=== PATIENT | female | born 1960 | race Caucasian/White ===

== ENCOUNTER → 2016-10-13 | Outpatient (CLI) | payer BC ==
--- NOTE | 2016-10-14 16:18 | XR ---
EXAMINATION TYPE: XR chest 2V DATE OF EXAM: 10/13/2016 1:58 PM COMPARISON: 06/11/2015 INDICATION: Cough TECHNIQUE: Frontal and lateral views of the chest are obtained. FINDINGS: The heart size is normal. The pulmonary vasculature is normal. The lungs are clear. IMPRESSION: 1. No acute pulmonary process.
== END | disposition home or self-care (01) ==
LOC: RADXRYALE 11:05
PROVIDERS: ATTEND Internal Medicine
DX: R05 Cough (principal)
CPT/HCPCS: 71020

== ENCOUNTER → 2016-10-27 | Outpatient (CLI) | payer BC ==
--- NOTE | 2016-10-27 16:04 | US ---
EXAMINATION TYPE: US thyroid st tissue head/neck DATE OF EXAM: 10/27/2016 3:27 PM COMPARISON: NONE CLINICAL HISTORY: R22.1 swelling,lump. Pt feels lump at left supraclavicular neck area. TECHNOLOGIST IMPRESSION: No mass or fluid collection noted at area of palpable lump. Bilateral neck scanned, no abnormal lymphadenopathy noted. Scanning of area of concern shows no worrisome solid or cystic mass or abnormal fluid collection. IMPRESSION: As above.
--- NOTE | 2016-10-28 08:23 | ECHOF ---
Referral Reason:R60.1 edema MEASUREMENTS -------- HEIGHT: 167.6 cm WEIGHT: 83.5 kg BP: 183/104 RVIDd: 2.8 cm (< 3.3) IVSd: 1.1 cm (0.6 - 1.1) LVIDd: 4.6 cm (3.9 - 5.3) LVPWd: 1.1 cm (0.6 - 1.1) IVSs: 1.4 cm LVIDs: 3.1 cm LVPWs: 1.7 cm LA Diam: 3.4 cm (2.7 - 3.8) LAESV Index (A-L): 16.84 ml/m Ao Diam: 3.4 cm (2.0 - 3.7) AV Cusp: 1.9 cm (1.5 - 2.6) MV EXCURSION: 11.800 mm (> 18.000) MV EF SLOPE: 65 mm/s (70 - 150) EPSS: 0.7 cm MV E Manolo: 0.84 m/s MV DecT: 280 ms MV A Manolo: 1.06 m/s MV E/A Ratio: 0.80 FINDINGS -------- Sinus rhythm. This was a technically adequate study. The left ventricular size is normal. There is borderline concentric left ventricular hypertrophy. Overall left ventricular systolic function is normal with, an EF between 60 - 65 %. The right ventricle is normal in size. The left atrium is normal in size. Normal LA size by volume 22+/-6 ml/m2. The right atrium is normal in size. The aortic valve is trileaflet and appears structurally normal. Mild mitral annular calcification present. The tricuspid valve appears structurally normal. No regurgitation noted Trace/mild (physiologic) pulmonic regurgitation. The aortic root size is normal. The inferior vena cava is mildly dilated. There is no pericardial effusion. CONCLUSIONS -------- 1. Sinus rhythm. 2. Mild mitral annular calcification present. 3. The tricuspid valve appears structurally normal. 4. Trace/mild (physiologic) pulmonic regurgitation. 5. The aortic root size is normal. 6. The inferior vena cava is mildly dilated. 7. There is no pericardial effusion. 8. This was a technically adequate study. 9. The left ventricular size is normal. 10. There is borderline concentric left ventricular hypertrophy. 11. Overall left ventricular systolic function is normal with, an EF between 60 - 65 %. 12. The right ventricle is normal in size. 13. Normal LA size by volume 22+/-6 ml/m2. 14. The right atrium is normal in size. 15. The aortic valve is trileaflet and appears structurally normal. HOOD MAKER: Idania Rudd RDCS
== END | disposition home or self-care (01) ==
LOC: RADECHMAIN 14:47
PROVIDERS: ATTEND Internal Medicine
DX: I37.1 Nonrheumatic pulmonary valve insufficiency (principal); I05.9 Rheumatic mitral valve disease, unspecified; I51.7 Cardiomegaly; I87.1 Compression of vein; R60.1 Generalized edema; R22.1 Localized swelling, mass and lump, neck
CPT/HCPCS: 76536; 93306

== ENCOUNTER → 2016-11-10 | Outpatient (CLI) | payer BC ==
--- NOTE | 2016-11-15 10:15 | MM ---
Reason for exam: screening (asymptomatic). Last mammogram was performed 1 year and 4 months ago. History: Patient is postmenopausal. Benign excisional biopsy of the right breast, July 05, 2003. Took estrogen for 2 years beginning at age 43. Physical Findings: A clinical breast exam by your physician is recommended on an annual basis and results should be correlated with mammographic findings. MG Screening Mammo w CAD Bilateral CC and MLO view(s) were taken. Prior study comparison: July 10, 2015, bilateral MG screening mammo w CAD. September 20, 2013, [facility] DIGITAL RIGHT MAMMOGRAM w/CAD. The breast tissue is heterogeneously dense. This may lower the sensitivity of mammography. There is no discrete abnormality. No significant changes when compared with prior studies. ASSESSMENT: Negative, BI-RAD 1 RECOMMENDATION: Routine screening mammogram of both breasts in 1 year.
== END | disposition home or self-care (01) ==
LOC: RADMAMWWP 15:19
PROVIDERS: ATTEND Internal Medicine
DX: Z12.31 Encounter for screening mammogram for malignant neoplasm of breast (principal)

== ENCOUNTER → 2018-10-20 | Outpatient (CLI) | payer OTHER ==
--- NOTE | 2018-10-23 07:29 | MM ---
Reason for exam: screening (asymptomatic). Last mammogram was performed 1 year and 11 months ago. History: Patient is postmenopausal. Benign excisional biopsy of the right breast, July 05, 2003. Took estrogen for 2 years beginning at age 43. Physical Findings: A clinical breast exam by your physician is recommended on an annual basis and results should be correlated with mammographic findings. MG Screening Mammo w CAD Bilateral CC and MLO view(s) were taken. Prior study comparison: November 10, 2016, bilateral MG screening mammo w CAD. July 10, 2015, bilateral MG screening mammo w CAD. The breast tissue is heterogeneously dense. This may lower the sensitivity of mammography. There are benign appearing round calcifications bilaterally. There is no discrete abnormality. ASSESSMENT: Benign, BI-RAD 2 RECOMMENDATION: Routine screening mammogram of both breasts in 1 year.
== END | disposition home or self-care (01) ==
LOC: RADMAMWWP 12:15
PROVIDERS: ATTEND Internal Medicine
DX: Z12.31 Encounter for screening mammogram for malignant neoplasm of breast (principal)
CPT/HCPCS: 77067

== ENCOUNTER 2018-12-05 12:18 | Emergency (ER) | payer OTHER ==
[2018-12-05 12:34] VITALS: TEMP 97.2
[2018-12-05] MEDS ORDERED: SODIUM CHLORIDE 0.9% 500 ML 500 ML IV STA (13:06)
[2018-12-05] MEDS ORDERED: DIPHENOX-ATROP 2.5-0.025 MG 1 EACH TAB PO STA (13:06)
[2018-12-05] MEDS ORDERED: ONDANSETRON 4 MG/2 ML VIAL IVP STA ×2 (13:06→14:52)
[2018-12-05] MEDS ORDERED: SODIUM CHLORIDE 0.9% 1,000 ML IV STA (13:06)
[2018-12-05] MEDS ORDERED: hydrALAZINE HCL 20 MG/ML 1 ML VIAL IVP STA (13:15)
--- NOTE | 2018-12-05 13:18 | ED ---
General Adult HPI - General Chief complaint: Nausea/Vomiting/Diarrhea Stated complaint: Stomach pain Time Seen by Provider: 12/05/18 12:30 Source: patient Mode of arrival: ambulatory Limitations: no limitations - History of Present Illness Initial comments: This a 58-year-old female presents emergency Department complaining of nausea vomiting and diarrhea. Patient states the nausea vomiting started 2 days ago and the diarrhea started yesterday. Patient states she has abdominal discomfort but no specific area of pain. Patient denies any fever chills per patient denies any recent antibiotics use. Patient denies any blood in the vomitus or diarrhea. Patient denies any chest pain difficult breathing shortness of breath. Patient states she is a daily drinker but she denies being an alcoholic. Patient denies any lightheadedness dizziness or near syncopal episode. - Related Data Home Medications Medication Instructions Recorded Confirmed ALPRAZolam [Xanax] 1.5 mg PO DAILY PRN 12/05/18 12/05/18 Lisinopril [Zestril] 40 mg PO DAILY 12/05/18 12/05/18 Naproxen 500 mg PO Q12H 12/05/18 12/05/18 Omeprazole 20 mg PO DAILY 12/05/18 12/05/18 Previous Rx's Medication Instructions Recorded Diphenox-Atrop 2.5-0.025 mg 2 tab PO QID PRN #6 tab 12/05/18 [Lomotil] Ondansetron Odt [Zofran Odt] 4 mg PO Q8HR PRN #5 tab 12/05/18 Allergies Allergy/AdvReac Type Severity Reaction Status Date / Time No Known Allergies Allergy Verified 12/05/18 13:35 Review of Systems ROS Statement: Those systems with pertinent positive or pertinent negative responses have been documented in the HPI. ROS Other: All systems not noted in ROS Statement are negative. Past Medical History Past Medical History: Hypertension History of Any Multi-Drug Resistant Organisms: None Reported Past Surgical History: No Surgical Hx Reported Past Psychological History: No Psychological Hx Reported Smoking Status: Never smoker Past Alcohol Use History: None Reported General Exam - General Exam Comments Initial Comments: GENERAL: Patient is well-developed and well-nourished. Patient is nontoxic and well- hydrated and is in mild distress. ENT: Neck is soft and supple. No significant lymphadenopathy is noted. Oropharynx is clear. Moist mucous membranes. Neck has full range of motion without eliciting any pain. EYES: The sclera were anicteric and conjunctiva were pink and moist. Extraocular movements were intact and pupils were equal round and reactive to light. Eyelids were unremarkable. PULMONARY: Unlabored respirations. Good breath sounds bilaterally. No audible rales rhonchi or wheezing was noted. CARDIOVASCULAR: There is a regular rate and rhythm without any murmurs gallops or rubs. ABDOMEN: Soft and nontender with normal bowel sounds. No palpable organomegaly was noted. There is no palpable pulsatile mass. SKIN: Skin is clear with no lesions or rashes and otherwise unremarkable. NEUROLOGIC: Patient is alert and oriented x3. Cranial nerves II through XII are grossly intact. Motor and sensory are also intact. Normal speech, volume and content. Symmetrical smile. MUSCULOSKELETAL: Normal extremities with adequate strength and full range of motion. LYMPHATICS: No significant lymphadenopathy is noted PSYCHIATRIC: Normal psychiatric evaluation. Limitations: no limitations Course Vital Signs 12/05/18 12:30 Temperature 97.2 F L Pulse Rate 75 Respiratory 16 Rate Blood Pressure 206/108 O2 Sat by Pulse 96 Oximetry Medical Decision Making - Medical Decision Making Patient will more episode of emesis in the emergency department but after that was feeling considerably better. I went back into the room to reevaluate the patient patient's abdomen continued to be soft. And I discussed the fact that the patient was intoxicated and she did agree that she is probably an alcoholic. - Lab Data Result diagrams: 12/05/18 13:20 12/05/18 13:20 Lab Results 12/05/18 12/05/18 Range/Units 13:20 13:20 WBC 5.9 (3.8-10.6) k/uL RBC 5.13 (3.80-5.40) m/uL Hgb 14.9 (11.4-16.0) gm/dL Hct 44.8 (34.0-46.0) % MCV 87.5 (80.0-100.0) fL MCH 29.1 (25.0-35.0) pg MCHC 33.2 (31.0-37.0) g/dL RDW 13.7 (11.5-15.5) % Plt Count 259 (150-450) k/uL Neutrophils % 65 % Lymphocytes % 27 % Monocytes % 4 % Eosinophils % 3 % Basophils % 1 % Neutrophils # 3.8 (1.3-7.7) k/uL Lymphocytes # 1.6 (1.0-4.8) k/uL Monocytes # 0.2 (0-1.0) k/uL Eosinophils # 0.2 (0-0.7) k/uL Basophils # 0.0 (0-0.2) k/uL Sodium 145 (137-145) mmol/L Potassium 4.2 (3.5-5.1) mmol/L Chloride 107 (98-107) mmol/L Carbon Dioxide 28 (22-30) mmol/L Anion Gap 10 mmol/L BUN 20 H (7-17) mg/dL Creatinine 0.67 (0.52-1.04) mg/dL Est GFR (CKD-EPI)AfAm >90 (>60 ml/min/1.73 sqM) Est GFR (CKD-EPI)NonAf >90 (>60 ml/min/1.73 sqM) Glucose 105 H (74-99) mg/dL Calcium 10.7 H (8.4-10.2) mg/dL Total Bilirubin 0.7 (0.2-1.3) mg/dL AST 23 (14-36) U/L ALT 30 (9-52) U/L Alkaline Phosphatase 89 (38-126) U/L Total Protein 7.8 (6.3-8.2) g/dL Albumin 4.8 (3.5-5.0) g/dL Amylase 72 (30-110) U/L Lipase 152 (23-300) U/L Serum Alcohol 179 mg/dL Disposition Clinical Impression: Alcohol intoxication, Gastroenteritis Disposition: HOME SELF-CARE Condition: Good Instructions (If sedation given, give patient instructions): Gastroenteritis (ED), Abuse of Alcohol (ED) Prescriptions: Diphenox-Atrop 2.5-0.025 mg [Lomotil] 2 tab PO QID PRN #6 tab PRN Reason: Diarrhea Ondansetron Odt [Zofran Odt] 4 mg PO Q8HR PRN #5 tab PRN Reason: Nausea Is patient prescribed a controlled substance at d/c from ED?: No Referrals: Tammie Alonso MD [Primary Care Provider] - 1-2 days Time of Disposition: 15:37
[2018-12-05 13:33] LABS: Basophils % (A) 1 %; Eosinophils # (A) 0.2 k/uL (0-0.7); Eosinophils % (A) 3 %; HCT 44.8 % (34.0-46.0); HGB 14.9 gm/dL (11.4-16.0); Lymphocytes # (A) 1.6 k/uL (1.0-4.8); Lymphocytes % (A) 27 %; MCH 29.1 pg (25.0-35.0); MCHC 33.2 g/dL (31.0-37.0); MCV 87.5 fL (80.0-100.0); Mean Platelet Volume 7.4; Monocytes # (A) 0.2 k/uL (0-1.0); Monocytes % (A) 4 %; Neutrophils # (A) 3.8 k/uL (1.3-7.7); Neutrophils % (A) 65 %; Platelet Count 259 k/uL (150-450); RBC 5.13 m/uL (3.80-5.40); RDW 13.7 % (11.5-15.5); WBC 5.9 k/uL (3.8-10.6)
[2018-12-05 13:46] LABS: ALT 30 U/L (9-52); AST 23 U/L (14-36); Albumin 4.8 g/dL (3.5-5.0); Alkaline Phosphatase 89 U/L (38-126); Amylase 72 U/L (30-110); Anion Gap 10 mmol/L; Blood Urea Nitrogen 20 mg/dL (7-17); Calcium 10.7 mg/dL (8.4-10.2); Carbon Dioxide 28 mmol/L (22-30); Chloride 107 mmol/L (98-107); Glucose 105 mg/dL (74-99); Lipase 152 U/L (23-300); Potassium 4.2 mmol/L (3.5-5.1); Sodium 145 mmol/L (137-145); Total Bilirubin 0.7 mg/dL (0.2-1.3); Total Protein 7.8 g/dL (6.3-8.2)
[2018-12-05 13:49] LABS: Alcohol 179 mg/dL
--- NOTE | 2018-12-05 14:04 | XR ---
EXAMINATION TYPE: XR KUB DATE OF EXAM: 12/05/2018 1:59 PM CLINICAL HISTORY: Nausea, vomiting, and abdominal pain TECHNIQUE: Single supine KUB image of the abdomen is obtained. COMPARISON: None. FINDINGS: Scattered loops of nondilated small and large bowel are seen throughout the abdomen. Few ai r-fluid levels are seen with no differential air-fluid levels. Lung bases are well aerated. Osseous s tructures are grossly intact. Bilateral femoral arthroplasties are seen. No abnormal calcifications i n the abdomen. Liver appears mildly enlarged extending past the iliac crest. IMPRESSION: Few air-fluid levels within nondilated bowel suggests mild ileus. No evidence of obstruction.
[2018-12-05 15:46] VITALS: RESP 18
[2018-12-05 15:47] VITALS: BP 161/101; PULSE 86
== END 2018-12-05 15:55 | disposition home or self-care (01) ==
LOC: EC 12:18
DX: K52.9 Noninfective gastroenteritis and colitis, unspecified (principal); F10.129 Alcohol abuse with intoxication, unspecified; I10 Essential (primary) hypertension; Z79.1 Long term (current) use of non-steroidal anti-inflammatories (NSAID); Z79.899 Other long term (current) drug therapy
CPT/HCPCS: 36415; 80053; 82150; 83690; 85025; 80320; 74018; 99284; 96374; 96375; 96376; 96361 ×2; J0360; J2405

== ENCOUNTER → 2020-03-11 | Outpatient (CLI) | payer OTHER ==
[~2020-03-11] MED LIST: REGADENOSON 0.4 MG/5 ML SYRINGE IV ONE
--- NOTE | 2020-03-12 12:18 | ECHOF ---
Referral Reason:R07.9 chest pain, I16.0 hypertension urgency MEASUREMENTS -------- HEIGHT: 167.6 cm WEIGHT: 86.2 kg BP: 185/95 RVIDd: 3.1 cm (< 3.3) IVSd: 1.0 cm (0.6 - 1.1) LVIDd: 5.2 cm (3.9 - 5.3) LVPWd: 1.2 cm (0.6 - 1.1) IVSs: 1.6 cm LVIDs: 3.1 cm LVPWs: 1.7 cm LA Diam: 3.5 cm (2.7 - 3.8) LAESV Index (A-L): 29.39 ml/m Ao Diam: 3.2 cm (2.0 - 3.7) AV Cusp: 2.1 cm (1.5 - 2.6) MV EXCURSION: 19.436 mm (> 18.000) MV EF SLOPE: 89 mm/s (70 - 150) EPSS: 0.9 cm MV E Manolo: 1.12 m/s MV DecT: 211 ms MV A Manolo: 0.84 m/s MV E/A Ratio: 1.34 RAP: 5.00 mmHg RVSP: 31.76 mmHg FINDINGS -------- Sinus rhythm. This was a technically adequate study. The left ventricular size is normal. There is borderline concentric left ventricular hypertrophy. Overall left ventricular systolic function is normal with, an EF between 60 - 65 %. The right ventricle is normal in size. LA is midly dilated 29-33ml/m2. The right atrium is normal in size. Interatrial and interventricular septum intact. The aortic valve is trileaflet and appears structurally normal. There is trace to mild mitral regurgitation. Mild tricuspid regurgitation present. Right ventricular systolic pressure is normal at < 35 mmHg. Trace/mild (physiologic) pulmonic regurgitation. The aortic root size is normal. Normal inferior vena cava with normal inspiratory collapse consistent with estimated right atrial pre ssure of 5 mmHg. The inferior vena cava is mildly dilated. There is no pericardial effusion. CONCLUSIONS -------- 1. Sinus rhythm. 2. This was a technically adequate study. 3. The left ventricular size is normal. 4. There is borderline concentric left ventricular hypertrophy. 5. Overall left ventricular systolic function is normal with, an EF between 60 - 65 %. 6. The right ventricle is normal in size. 7. LA is midly dilated 29-33ml/m2. 8. The right atrium is normal in size. 9. Interatrial and interventricular septum intact. 10. The aortic valve is trileaflet and appears structurally normal. 11. There is trace to mild mitral regurgitation. 12. Mild tricuspid regurgitation present. 13. Right ventricular systolic pressure is normal at < 35 mmHg. 14. Trace/mild (physiologic) pulmonic regurgitation. 15. The aortic root size is normal. 16. Normal inferior vena cava with normal inspiratory collapse consistent with estimated right atrial pressure of 5 mmHg. 17. The inferior vena cava is mildly dilated. 18. There is no pericardial effusion. EMERY GRINDER: Idania Rudd RDCS
--- NOTE | 2020-03-14 13:17 | NM ---
EXAMINATION TYPE: NM stress lexiscan cardiolite DATE OF EXAM: 03/14/2020 COMPARISON: NONE HISTORY: Precordial chest pain and abnormal EKG TECHNIQUE: After the intravenous administration of 9.7 mCi Tc 99m Sestamibi - Cardiolite resting SPE CT images acquired 65 minutes post injection. The patient received 0.4mg Lexiscan, 25.9 mCi Tc 99m Sestamibi - Stress images obtained [address] injection FINDINGS: Review of stress and rest SPECT images demonstrates no distinct perfusion abnormality. Gated analysi s shows normal wall motion with an estimated left ventricular ejection fraction of %. IMPRESSION: No scintigraphic evidence for reversible ischemia.
--- NOTE | 2020-03-14 14:32 | EST ---
EXERCISE STRESS DATE OF SERVICE: 03/14/2020 AGE: 59 SEX: Fe HT: 5'6" WT: 190 lbs PROTOCOL: Lexiscan Cardiolite STAGE: DURATION OF EXERCISE: HEART RATE REST: 76 BLOOD PRESSURE REST: 144/94 MAXIMUM HEART RATE ACHIEVED: 88 MAXIMUM BLOOD PRESSURE: 183/105. 85% MPHR: 100% MPHR: METS: INDICATIONS: Chest pain. STRESS DATA: Heart rate 76, pressure is 183/105 mmHg. Baseline EKG showed sinus mechanism. The patient was given 0.4 mg of Lexiscan over 15 seconds per protocol. Max heart rate was 88 beats per minute and maximum pressure was 183/105 mmHg. Clinically the patient did not have any symptoms and the EKG did not show any significant ST or T-wave abnormalities concerning for ischemia. CONCLUSION: 1. Nondiagnostic electrocardiogram stress testing in response to Lexiscan. 2. Please follow up on the Cardiolite portion on separate report from Radiology Department. MMODL / IJN: [id number] /
== END | disposition home or self-care (01) ==
LOC: RADNMMAIN 08:22
PROVIDERS: ATTEND Family Medicine
DX: I07.1 Rheumatic tricuspid insufficiency (principal); I10 Essential (primary) hypertension
CPT/HCPCS: 93306; J2785; 78452; 93017

== ENCOUNTER 2020-03-31 18:04 | Observation (INO) | payer OTHER ==
--- NOTE | 2020-03-31 18:53 | ED ---
General Adult HPI - General Chief complaint: GI Bleed Stated complaint: blood in stool Time Seen by Provider: 03/31/20 18:44 Source: patient Mode of arrival: ambulatory Limitations: no limitations - History of Present Illness Initial comments: Dictation was produced using [employer] dictation software. please excuse any grammatical, word or spelling errors. This patient was cared for during a federal and state declared state of emergency secondary to Covid 19 Chief Complaint: 59-year-old female presents with bright red blood per rectum. History of Present Illness: 59-year-old female. She presents today with bright red blood per rectum. Yesterday at approximately 3 PM patient had large volume of bright red blood that was in the toilet. She has not had a bowel movement today however she did pass gas and noted that there was some blood that came out from her bottom. She does have suprapubic pain. Patient denies any rectal pa in. She does not have any history of GI bleed. Patient does not take any blood thinners. Denies any orthostasis. The ROS documented in this emergency department record has been reviewed and confirmed by me. Those systems with pertinent positive or negative responses have been documented in the HPI. All other systems are other negative and/or noncontributory. PHYSICAL EXAM: General Impression: Alert and oriented x3, not in acute distress HEENT: Normocephalic atraumatic, extra-ocular movements intact, pupils equal and reactive to light bilaterally, mucous membranes moist. Cardiovascular: Heart regular rate and rhythm Chest: Able to complete full sentences, no retractions, no tachypnea Abdomen: abdomen soft, mild tenderness to the suprapubic area with palpation, non-distended, no organomegaly Musculoskeletal: Pulses present and equal in all extremities, no peripheral edema Motor: no focal deficits noted Neurological: CN II-XII grossly intact, no focal motor or sensory deficits noted Skin: Intact with no visualized rashes Psych: Normal affect and mood ED course: 59-year-old female presents with bright red blood per rectum. Signs upon arrival are within acceptable limits. Laboratory evaluation was obtained. Mild leukocytosis of 10.7 likely secondary to stress. Hemoglobin 12.6 and stable. Coag panel unremarkable. Metabolic panel is negative. Sae blood is positive. Patient observed in the emergency department for several hours with no recurrence of GI bleed. Disposition options were discussed with patient. She felt more comfortable being admitted. Pending discussion with on-call doctor for [facility]. Patient be admitted observational consultation to GI doctor. Patient given Protonix. - Related Data Home Medications Medication Instructions Recorded Confirmed ALPRAZolam [Xanax] 1.5 mg PO DAILY PRN 12/05/18 12/05/18 Lisinopril [Zestril] 40 mg PO DAILY 12/05/18 12/05/18 Naproxen 500 mg PO Q12H 12/05/18 12/05/18 Omeprazole 20 mg PO DAILY 12/05/18 12/05/18 Previous Rx's Medication Instructions Recorded Diphenox-Atrop 2.5-0.025 mg 2 tab PO QID PRN #6 tab 12/05/18 [Lomotil] Ondansetron Odt [Zofran Odt] 4 mg PO Q8HR PRN #5 tab 12/05/18 Allergies Allergy/AdvReac Type Severity Reaction Status Date / Time No Known Allergies Allergy Verified 03/31/20 18:30 Review of Systems ROS Statement: Those systems with pertinent positive or pertinent negative responses have been documented in the HPI. ROS Other: All systems not noted in ROS Statement are negative. Past Medical History Past Medical History: Hyperlipidemia, Hypertension History of Any Multi-Drug Resistant Organisms: None Reported Past Surgical History: Hysterectomy, Joint Replacement Past Psychological History: No Psychological Hx Reported Smoking Status: Current every day smoker Past Alcohol Use History: None Reported Past Drug Use History: None Reported General Exam Limitations: no limitations Course Vital Signs 03/31/20 18:27 Temperature 98.1 F Pulse Rate 87 Respiratory 18 Rate Blood Pressure 141/85 O2 Sat by Pulse 99 Oximetry Medical Decision Making - Lab Data Result diagrams: 03/31/20 19:10 03/31/20 19:10 Lab Results 03/31/20 03/31/20 03/31/20 Range/Units 19:10 19:10 19:10 WBC 10.7 H (3.8-10.6) k/uL RBC 4.36 (3.80-5.40) m/uL Hgb 12.6 (11.4-16.0) gm/dL Hct 39.8 (34.0-46.0) % MCV 91.3 (80.0-100.0) fL MCH 29.0 (25.0-35.0) pg MCHC 31.8 (31.0-37.0) g/dL RDW 13.4 (11.5-15.5) % Plt Count 176 (150-450) k/uL Neutrophils % 76 % Lymphocytes % 15 % Monocytes % 4 % Eosinophils % 3 % Basophils % 0 % Neutrophils # 8.2 H (1.3-7.7) k/uL Lymphocytes # 1.6 (1.0-4.8) k/uL Monocytes # 0.5 (0-1.0) k/uL Eosinophils # 0.3 (0-0.7) k/uL Basophils # 0.0 (0-0.2) k/uL PT 9.7 (9.0-12.0) sec INR 0.9 (<1.2) APTT 24.3 (22.0-30.0) sec Sodium 136 L (137-145) mmol/L Potassium 3.8 (3.5-5.1) mmol/L Chloride 103 (98-107) mmol/L Carbon Dioxide 27 (22-30) mmol/L Anion Gap 6 mmol/L BUN 14 (7-17) mg/dL Creatinine 0.59 (0.52-1.04) mg/dL Est GFR (CKD-EPI)AfAm >90 (>60 ml/min/1.73 sqM) Est GFR (CKD-EPI)NonAf >90 (>60 ml/min/1.73 sqM) Glucose 142 H (74-99) mg/dL Calcium 9.4 (8.4-10.2) mg/dL Stool Occult Blood (Negative) 03/31/20 Range/Units 19:10 WBC (3.8-10.6) k/uL RBC (3.80-5.40) m/uL Hgb (11.4-16.0) gm/dL Hct (34.0-46.0) % MCV (80.0-100.0) fL MCH (25.0-35.0) pg MCHC (31.0-37.0) g/dL RDW (11.5-15.5) % Plt Count (150-450) k/uL Neutrophils % % Lymphocytes % % Monocytes % % Eosinophils % % Basophils % % Neutrophils # (1.3-7.7) k/uL Lymphocytes # (1.0-4.8) k/uL Monocytes # (0-1.0) k/uL Eosinophils # (0-0.7) k/uL Basophils # (0-0.2) k/uL PT (9.0-12.0) sec INR (<1.2) APTT (22.0-30.0) sec Sodium (137-145) mmol/L Potassium (3.5-5.1) mmol/L Chloride (98-107) mmol/L Carbon Dioxide (22-30) mmol/L Anion Gap mmol/L BUN (7-17) mg/dL Creatinine (0.52-1.04) mg/dL Est GFR (CKD-EPI)AfAm (>60 ml/min/1.73 sqM) Est GFR (CKD-EPI)NonAf (>60 ml/min/1.73 sqM) Glucose (74-99) mg/dL Calcium (8.4-10.2) mg/dL Stool Occult Blood Positive H (Negative) Disposition Clinical Impression: GI bleed Disposition: ADMITTED IP TO THIS [facility] Condition: Fair Referrals: Jessica Salamanca III, MD [Primary Care Provider] - 1-2 days Decision Time: 19:54
[2020-03-31 19:23] LABS: Basophils % (A) 0 %; Eosinophils # (A) 0.3 k/uL (0-0.7); Eosinophils % (A) 3 %; HCT 39.8 % (34.0-46.0); HGB 12.6 gm/dL (11.4-16.0); Lymphocytes # (A) 1.6 k/uL (1.0-4.8); Lymphocytes % (A) 15 %; MCHC 31.8 g/dL (31.0-37.0); MCV 91.3 fL (80.0-100.0); Mean Platelet Volume 8.6; Monocytes # (A) 0.5 k/uL (0-1.0); Monocytes % (A) 4 %; Neutrophils # (A) 8.2 k/uL (1.3-7.7); Neutrophils % (A) 76 %; Platelet Count 176 k/uL (150-450); RBC 4.36 m/uL (3.80-5.40); RDW 13.4 % (11.5-15.5); WBC 10.7 k/uL (3.8-10.6)
[2020-03-31 19:32] LABS: African American GFR (CKD) >90 (>60 ml/min/1.73 sqM); Anion Gap 6 mmol/L; Blood Urea Nitrogen 14 mg/dL (7-17); Calcium 9.4 mg/dL (8.4-10.2); Carbon Dioxide 27 mmol/L (22-30); Chloride 103 mmol/L (98-107); Glucose 142 mg/dL (74-99); Non-African American GFR(CKD) >90 (>60 ml/min/1.73 sqM); Potassium 3.8 mmol/L (3.5-5.1); Sodium 136 mmol/L (137-145)
[2020-03-31 19:33] LABS: INR 0.9 (<1.2); Partial Thromboplastin Time 24.3 sec (22.0-30.0); Prothrombin Time 9.7 sec (9.0-12.0)
[2020-03-31] MEDS ORDERED: PANTOPRAZOLE 40 MG/10 ML VIAL IVP ONE (19:52)
[2020-03-31] MEDS ORDERED: ONDANSETRON 4 MG/2 ML VIAL IVP PRN (19:54)
[2020-03-31] MEDS ORDERED: NALOXONE 0.4 MG/ML 1 ML VIAL IV PRN (19:54)
[2020-03-31] MEDS: SODIUM CHLORIDE 0.9% 1,000 ML IV SCH (20:17)
[2020-03-31] MEDS ORDERED: MORPHINE SULFATE 4 MG/ML SYRINGE IV STA (20:23)
[2020-03-31] MEDS: MORPHINE SULFATE 2 MG/ML SYRINGE IVP PRN (23:10)
[2020-04-01] MEDS: MORPHINE SULFATE 2 MG/ML SYRINGE IVP PRN ×5 (04:40→21:44)
[2020-04-01] MEDS: SODIUM CHLORIDE 0.9% 1,000 ML IV SCH ×3 (04:43→21:44)
[2020-04-01 06:25] LABS: ALT 31 U/L (4-34); AST 27 U/L (14-36); African American GFR (CKD) >90 (>60 ml/min/1.73 sqM); Albumin 3.7 g/dL (3.5-5.0); Alkaline Phosphatase 97 U/L (38-126); Anion Gap 3 mmol/L; Bilirubin, Delta 0.1 mg/dL (0.0-0.2); Bilirubin,Unconjugated 0.4 mg/dL (0.0-1.1); Blood Urea Nitrogen 12 mg/dL (7-17); Calcium 8.6 mg/dL (8.4-10.2); Carbon Dioxide 27 mmol/L (22-30); Chloride 107 mmol/L (98-107); Glucose 111 mg/dL (74-99); Non-African American GFR(CKD) >90 (>60 ml/min/1.73 sqM); Potassium 4.2 mmol/L (3.5-5.1); Sodium 137 mmol/L (137-145); Total Bilirubin 0.5 mg/dL (0.2-1.3); Total Protein 5.9 g/dL (6.3-8.2)
[2020-04-01] MEDS: ALBUTEROL NEBULIZED 2.5 MG/3 ML INHALATION PRN (07:33)
[2020-04-01] MEDS ORDERED: PANTOPRAZOLE 40 MG/10 ML VIAL IV SCH (09:00)
[2020-04-01] MEDS: amLODIPine 10 MG TAB PO SCH (09:37)
[2020-04-01] MEDS: LISINOPRIL 20 MG TAB PO SCH (09:37)
[2020-04-01] MEDS: ATORVASTATIN 20 MG TAB PO SCH (09:37)
[2020-04-01] MEDS: IOPAMIDOL CONTRAST (ORAL USE) VIAL PO PRN ×2 (10:32→11:32)
[2020-04-01] MEDS: NICOTINE 14MG/24HR PATCH TRANSDERM SCH (10:34)
--- NOTE | 2020-04-01 12:27 | P.GSCN ---
History of Present Illness Consult date: 04/01/20 Reason for Consult: GI bleed History of present illness: This a 51-year-old female who was admitted through the emergency room with complaints of rectal bleeding. Patient's hemoglobin was in the 12 range. Patient states she's had intermittent rectal bleeding for several days. Patient that she has pain in her lower abdomen. Patient underwent CAT scan the abdomen today results of this are pending so Past Medical History Past Medical History: Hyperlipidemia, Hypertension History of Any Multi-Drug Resistant Organisms: None Reported Past Surgical History: Hysterectomy, Joint Replacement Past Psychological History: No Psychological Hx Reported Smoking Status: Current every day smoker Past Alcohol Use History: None Reported Past Drug Use History: None Reported Medications and Allergies Home Medications Medication Instructions Recorded Confirmed Type ALPRAZolam [Xanax] 0.5 mg PO TID PRN 12/05/18 03/31/20 History Naproxen 500 mg PO Q12H PRN 12/05/18 03/31/20 History Omeprazole 20 mg PO BID 12/05/18 03/31/20 History Albuterol Sulfate [Ventolin HFA] 2 puff INHALATION RT-Q6H PRN 03/31/20 03/31/20 History Atorvastatin [Lipitor] 20 mg PO DAILY 03/31/20 03/31/20 History Lisinopril 40 mg PO DAILY 03/31/20 03/31/20 History Oxybutynin Chloride [Ditropan XL] 5 mg PO DAILY 03/31/20 03/31/20 History amLODIPine [Norvasc] 10 mg PO DAILY 03/31/20 03/31/20 History Allergies Allergy/AdvReac Type Severity Reaction Status Date / Time No Known Allergies Allergy Verified 03/31/20 20:27 Surgical - Exam Vital Signs Temp Pulse Resp BP Pulse Ox 98.1 F 87 18 141/85 99 03/31/20 18:27 03/31/20 18:27 03/31/20 18:27 03/31/20 18:27 03/31/20 18:27 - General well developed, well nourished, no distress - Eyes PERRL - ENT normal pinna - Neck no masses - Respiratory normal expansion - Cardiovascular Rhythm: regular - Abdomen Mild left-sided abdominal pain Abdomen: soft Results - Labs 03/31/20 19:10 04/01/20 05:31 Abnormal Lab Results - Last 24 Hours (Table) 03/31/20 03/31/20 03/31/20 Range/Units 19:10 19:10 19:10 WBC 10.7 H (3.8-10.6) k/uL Neutrophils # 8.2 H (1.3-7.7) k/uL Sodium 136 L (137-145) mmol/L Glucose 142 H (74-99) mg/dL Total Protein (6.3-8.2) g/dL Stool Occult Blood Positive H (Negative) 04/01/20 Range/Units 05:31 WBC (3.8-10.6) k/uL Neutrophils # (1.3-7.7) k/uL Sodium (137-145) mmol/L Glucose 111 H (74-99) mg/dL Total Protein 5.9 L (6.3-8.2) g/dL Stool Occult Blood (Negative) Diabetes panel 03/31/20 04/01/20 Range/Units 19:10 05:31 Sodium 136 L 137 (137-145) mmol/L Potassium 3.8 4.2 (3.5-5.1) mmol/L Chloride 103 107 (98-107) mmol/L Carbon Dioxide 27 27 (22-30) mmol/L BUN 14 12 (7-17) mg/dL Creatinine 0.59 0.56 (0.52-1.04) mg/dL Glucose 142 H 111 H (74-99) mg/dL Calcium 9.4 8.6 (8.4-10.2) mg/dL AST 27 (14-36) U/L ALT 31 (4-34) U/L Alkaline Phosphatase 97 (38-126) U/L Total Protein 5.9 L (6.3-8.2) g/dL Albumin 3.7 (3.5-5.0) g/dL Calcium panel 03/31/20 04/01/20 Range/Units 19:10 05:31 Calcium 9.4 8.6 (8.4-10.2) mg/dL Albumin 3.7 (3.5-5.0) g/dL Pituitary panel 03/31/20 04/01/20 Range/Units 19:10 05:31 Sodium 136 L 137 (137-145) mmol/L Potassium 3.8 4.2 (3.5-5.1) mmol/L Chloride 103 107 (98-107) mmol/L Carbon Dioxide 27 27 (22-30) mmol/L BUN 14 12 (7-17) mg/dL Creatinine 0.59 0.56 (0.52-1.04) mg/dL Glucose 142 H 111 H (74-99) mg/dL Calcium 9.4 8.6 (8.4-10.2) mg/dL Adrenal panel 03/31/20 04/01/20 Range/Units 19:10 05:31 Sodium 136 L 137 (137-145) mmol/L Potassium 3.8 4.2 (3.5-5.1) mmol/L Chloride 103 107 (98-107) mmol/L Carbon Dioxide 27 27 (22-30) mmol/L BUN 14 12 (7-17) mg/dL Creatinine 0.59 0.56 (0.52-1.04) mg/dL Glucose 142 H 111 H (74-99) mg/dL Calcium 9.4 8.6 (8.4-10.2) mg/dL Total Bilirubin 0.5 (0.2-1.3) mg/dL AST 27 (14-36) U/L ALT 31 (4-34) U/L Alkaline Phosphatase 97 (38-126) U/L Total Protein 5.9 L (6.3-8.2) g/dL Albumin 3.7 (3.5-5.0) g/dL Assessment and Plan Plan: GI bleed. Patient most likely has some form of lower GI bleed which may be related to hemorrhoids or anal pathology. CAT scan of the abdomen is pending. We will follow with you.
--- NOTE | 2020-04-01 14:45 | CT ---
EXAMINATION TYPE: CT abdomen pelvis w con DATE OF EXAM: 04/01/2020 COMPARISON: None HISTORY: Generalized pain with rectal bleeding CT DLP: 1393.4 mGycm Automated exposure control for dose reduction was used. TECHNIQUE: Helical acquisition of images from the lung bases through the pelvis have been completed. CONTRAST: Performed with Oral Contrast and with IV Contrast, patient injected with 100 mL of Isovue 300. FINDINGS: LUNG BASES: No significant abnormality is appreciated. AORTA: No significant abnormality is appreciated. LIVER/GB: Liver is enlarged, low density within the liver may be due to hepatic steatosis, gallbladde r shows no definite stone. PANCREAS: No significant abnormality is seen. SPLEEN: No significant abnormality is seen. ADRENALS: No significant abnormality is seen. KIDNEYS: No significant abnormality is seen. REPRODUCTIVE ORGANS: Not seen BOWEL: Colon shows wall thickening transverse colon extending to the left upper quadrant, there is n o bowel obstruction. No evident appendicitis. FREE AIR: No Free Air visible. ASCITES: None visible. PELVIC ADENOPATHY: None visualized. RETROPERITONEAL ADENOPATHY: No Retroperitoneal Adenopathy visible. URINARY BLADDER: No significant abnormality is seen. OSSEOUS STRUCTURES: Streak artifact due to patient's hip prostheses is noted. There is a low dense f ocus extending along the anterior aspect of the proximal lower extremity from the level of the iliops oas overall measuring approximately 7.7 x 13 x 5 cm with a thickened wall, suspect an enlarged bursa with associated fluid collection, correlate for possible bursitis. IMPRESSION: CORRELATE FOR COLITIS. PROBABLE ENLARGED ILIOPSOAS BURSA as described. Additional findings above, cor relate for possible hepatic steatosis, there is hepatomegaly.
[2020-04-01 15:37] LABS: Basophils % (A) 1 %; Eosinophils # (A) 0.2 k/uL (0-0.7); Eosinophils % (A) 3 %; HCT 38.9 % (34.0-46.0); HGB 12.2 gm/dL (11.4-16.0); Lymphocytes # (A) 1.4 k/uL (1.0-4.8); Lymphocytes % (A) 17 %; MCH 29.6 pg (25.0-35.0); MCHC 31.5 g/dL (31.0-37.0); Mean Platelet Volume 9.7; Monocytes # (A) 0.5 k/uL (0-1.0); Monocytes % (A) 6 %; Neutrophils # (A) 5.9 k/uL (1.3-7.7); Neutrophils % (A) 73 %; Platelet Count 159 k/uL (150-450); RBC 4.13 m/uL (3.80-5.40); RDW 13.5 % (11.5-15.5); WBC 8.1 k/uL (3.8-10.6)
[2020-04-01] MEDS: LEVOFLOXACIN 500MG-D5W PMX 500 MG in DEXTROSE/WATER 1 100ML.BAG IVPB SCH (15:53)
[2020-04-01] MEDS: DICYCLOMINE 10 MG CAP PO PRN ×2 (16:06→20:23)
[2020-04-01] MEDS: metroNIDAZOLE-NS PMX 500 MG in SALINE 1 100ML.BAG IVPB SCH ×2 (17:10→23:32)
[2020-04-01] MEDS: PANTOPRAZOLE 40 MG/10 ML VIAL IV SCH (20:23)
--- NOTE | 2020-04-01 22:05 | P.HPIM ---
History of Present Illness H&P Date: 04/01/20 Chief Complaint: rectal Bleeding Patient is a 59-year-old female with a known history of hypertension, hyperlipidemia and currently with a smoker and drinks about 1 beer/day Guillermina with the complaints of blood clots per rectum. Patient states that her symptoms started on Tuesday With lower abdominal pain. Cramping type pain. Patient also complaining of pain about the umbilicus as well. Otherwise denies any dysuria or hematuria. No fever no chills. Patient had loose bowels at home but is more formed this morning. Patient noticed blood clots in the stool again. Denied any rectal pain. No prior history of GI bleed. Patient does state Naprosyn for arthritis daily once. Patient had last colonoscopy about 3 years back. No complaints of chest pain or shortness breath. No leg swelling. No cough or sputum production. Lab data showed WBC 10.7, hemoglobin 12.6 and platelets 176 Sodium 136, potassium 3.8, chloride 103, BUN 14 and creatinine 0.59 Liver enzymes are not elevated FOBT positive Review of Systems Constitutional: Patient denies any fever or chills . No generalized weakness or weight loss. Abdomen: Patient denied nausea vomiting and diarrhea and abdominal pain. blood clots per rectum.. Cardiovascular: Patient denies any chest pain or short of breath no palpitations. Respiratory: patient denied any cough is from production. No shortness of br eath Neurologic: Patient denied any numbness or tingling headache. Musculoskeletal: Patient denies any complaints of joint swelling or deformity. Skin: Negative Psychiatric: Negative Endocrine: No heat or cold intolerance. No recent weight gain. Genitourinary: No dysuria or hematuria. All other 14 point ROS negative except the above Past Medical History Past Medical History: Hyperlipidemia, Hypertension History of Any Multi-Drug Resistant Organisms: None Reported Past Surgical History: Hysterectomy, Joint Replacement Past Psychological History: No Psychological Hx Reported Smoking Status: Current every day smoker Past Alcohol Use History: None Reported Past Drug Use History: None Reported Medications and Allergies Home Medications Medication Instructions Recorded Confirmed Type ALPRAZolam [Xanax] 0.5 mg PO TID PRN 12/05/18 03/31/20 History Naproxen 500 mg PO Q12H PRN 12/05/18 03/31/20 History Omeprazole 20 mg PO BID 12/05/18 03/31/20 History Albuterol Sulfate [Ventolin HFA] 2 puff INHALATION RT-Q6H PRN 03/31/20 03/31/20 History Atorvastatin [Lipitor] 20 mg PO DAILY 03/31/20 03/31/20 History Lisinopril 40 mg PO DAILY 03/31/20 03/31/20 History Oxybutynin Chloride [Ditropan XL] 5 mg PO DAILY 03/31/20 03/31/20 History amLODIPine [Norvasc] 10 mg PO DAILY 03/31/20 03/31/20 History Allergies Allergy/AdvReac Type Severity Reaction Status Date / Time No Known Allergies Allergy Verified 03/31/20 20:27 Physical Exam Vitals: Vital Signs Temp Pulse Pulse Resp BP BP Pulse Ox 04/01/20 08:00 98.0 F 70 20 133/80 04/01/20 07:41 72 04/01/20 07:33 70 04/01/20 04:45 98.0 F 67 14 134/78 95 04/01/20 04:00 16 04/01/20 00:00 76 16 03/31/20 23:30 97.8 F 76 16 144/93 97 03/31/20 20:45 98.1 F 82 16 174/63 98 03/31/20 20:36 98.0 F 86 18 144/88 99 03/31/20 20:30 16 03/31/20 18:27 98.1 F 87 18 141/85 99 Intake and Output 03/31/20 04/01/20 04/01/20 22:59 06:59 14:59 Other: # Voids 1 1 # Bowel Movements 1 1 Weight 86.636 kg PHYSICAL EXAMINATION: Patient is lying in the bed comfortably, no acute distress, awake alert and oriented.. HEENT: Normocephalic. Neck is supple. Pupils reactive. Nostrils clear. Oral cavity is moist. Ears reveal no drainage. Neck reveals no JVD, carotid bruits, or thyromegaly. CHEST EXAMINATION: Trachea is central. Symmetrical expansion. Lung kasper clear to auscultation and percussion. CARDIAC: Normal S1, S2 with no gallops. No murmurs ABDOMEN: Soft.Mild lower abdominal tenderness. Bowel sounds normal. No organomegaly. No abdominal bruits. Extremities: reveal no edema. No clubbing or cyanosis Neurologically awake, alert, oriented x3 with well-coordinated movements. No focal deficits noted Skin: No rash or skin lesions. Psychiatric: Coperative. Nonsuicidal Musculoskeletal: No joint swelling or deformity. Normal range of motion. Results CBC & Chem 7: 04/01/20 05:31 04/01/20 05:31 Labs: Abnormal Lab Results - Last 24 Hours (Table) 03/31/20 03/31/20 03/31/20 Range/Units 19:10 19:10 19:10 WBC 10.7 H (3.8-10.6) k/uL Neutrophils # 8.2 H (1.3-7.7) k/uL Sodium 136 L (137-145) mmol/L Glucose 142 H (74-99) mg/dL Total Protein (6.3-8.2) g/dL Stool Occult Blood Positive H (Negative) 04/01/20 Range/Units 05:31 WBC (3.8-10.6) k/uL Neutrophils # (1.3-7.7) k/uL Sodium (137-145) mmol/L Glucose 111 H (74-99) mg/dL Total Protein 5.9 L (6.3-8.2) g/dL Stool Occult Blood (Negative) Thrombosis Risk Factor Assmnt - DVT/VTE Prophylaxis DVT/VTE Prophylaxis: Mechanical Prophylaxis ordered - Choose All That Apply Any of the Below Risk Factors Present?: Yes Each Factor Represents 1 point: Age 41-60 years, Obesity (BMI >25) Other congenital or acquired thrombophilia - If yes, enter type in comment: No Thrombosis Risk Factor Assessment Total Risk Factor Score: 2 Thrombosis Risk Factor Assessment Level: Low Risk Assessment and Plan Assessment: Blood clots per rectum possible lower GI bleed. Acute gastritis cannot be excluded with history of Naprosyn use on daily basis Hypertension Hyperlipidemia Osteoarthritis Ongoing nicotine addiction DVT prophylaxis with SCDs Plan: Patient will be continued on gentle hydration. Continue with PPI and monitor H&H. CT abdomen pelvis was ordered. General surgery has seen the patient. Further recommendations based on clinical course Time with Patient: Greater than 30
[2020-04-02] MEDS: MORPHINE SULFATE 2 MG/ML SYRINGE IVP PRN ×4 (00:50→15:04)
[2020-04-02] MEDS: DICYCLOMINE 10 MG CAP PO PRN ×2 (05:02→14:54)
[2020-04-02 06:12] LABS: Basophils % (A) 0 %; Eosinophils # (A) 0.3 k/uL (0-0.7); Eosinophils % (A) 3 %; HCT 37.5 % (34.0-46.0); HGB 12.3 gm/dL (11.4-16.0); Lymphocytes # (A) 1.3 k/uL (1.0-4.8); Lymphocytes % (A) 17 %; MCH 29.8 pg (25.0-35.0); MCHC 32.9 g/dL (31.0-37.0); MCV 90.4 fL (80.0-100.0); Mean Platelet Volume 8.6; Monocytes # (A) 0.4 k/uL (0-1.0); Monocytes % (A) 5 %; Neutrophils % (A) 74 %; Platelet Count 166 k/uL (150-450); RBC 4.15 m/uL (3.80-5.40); RDW 13.3 % (11.5-15.5); WBC 8.1 k/uL (3.8-10.6)
--- NOTE | 2020-04-02 06:28 | P.CONS ---
History of Present Illness - Reason for Consult Consult date: 04/01/20 Abdominal pain, blood per rectum Requesting physician: Francoise Pérez - Chief Complaint Abdominal pain - History of Present Illness 59-year-old female with medical history significant for hypertension, hyperlipidemia, tobacco abuse and daily alcohol use who presented to the hospital with complaints of abdominal pain and blood per rectum. The patient reports 2 days of abdominal pain which she describes as cramping in nature across her whole abdomen. Patient reports associated episodes of bright red blood and clots per rectum. No prior episodes of similar symptoms. The patient also has a history of daily NSAID use. She is on Prilosec therapy for reflux. Last colonoscopy 3 years ago and normal per her recollection with indication for repeat colonoscopy in 5 years at that time. Patient reports one episode of nonbloody emesis with her symptoms. On presentation WBC 10.7, hemoglobin 12.6, platelet count 176,000 with total bilirubin 0.5, alkaline phosphatase 97, AST 27 and ALT 31. Stool testing positive for occult blood. CT scan of the abdomen performed in evaluation showed evidence of colitis from the transverse colon to the left colon. Review of Systems Constitutional: Denies any fatigue, change in weight Eyes: Denies any change in vision, pain denies Nose: Denies any congestion, rhinorrhea Ears: Denies any change in hearing, new onset tinnitus Lungs: Denies any wheezing, shortness of breath, cough, or hemoptysis Cardiac: Denies any pain in chest, shortness of breath, lower extremity swelling Abdomen: As per history of present illness Skin: Denies any new rashes or pruritus Genitourinary: Denies any dysuria or hematuria Neuro: Denies any change in mental status, new focal deficits Past Medical History Past Medical History: Hyperlipidemia, Hypertension History of Any Multi-Drug Resistant Organisms: None Reported Past Surgical History: Hysterectomy, Joint Replacement Past Psychological History: No Psychological Hx Reported Smoking Status: Current every day smoker Past Alcohol Use History: None Reported Past Drug Use History: None Reported Additional History: Family History: Reviewed with the paitent and non contributory to current medical presentation. Medications and Allergies Home Medications Medication Instructions Recorded Confirmed Type ALPRAZolam [Xanax] 0.5 mg PO TID PRN 12/05/18 03/31/20 History Naproxen 500 mg PO Q12H PRN 12/05/18 03/31/20 History Omeprazole 20 mg PO BID 12/05/18 03/31/20 History Albuterol Sulfate [Ventolin HFA] 2 puff INHALATION RT-Q6H PRN 03/31/20 03/31/20 History Atorvastatin [Lipitor] 20 mg PO DAILY 03/31/20 03/31/20 History Lisinopril 40 mg PO DAILY 03/31/20 03/31/20 History Oxybutynin Chloride [Ditropan XL] 5 mg PO DAILY 03/31/20 03/31/20 History amLODIPine [Norvasc] 10 mg PO DAILY 03/31/20 03/31/20 History Allergies Allergy/AdvReac Type Severity Reaction Status Date / Time No Known Allergies Allergy Verified 03/31/20 20:27 Physical Exam Vitals: Vital Signs Temp Pulse Pulse Resp BP BP Pulse Ox 04/01/20 12:00 16 04/01/20 08:00 98.0 F 70 20 133/80 04/01/20 07:41 72 04/01/20 07:33 70 04/01/20 04:45 98.0 F 67 14 134/78 95 04/01/20 04:00 16 04/01/20 00:00 76 16 03/31/20 23:30 97.8 F 76 16 144/93 97 03/31/20 20:45 98.1 F 82 16 174/63 98 03/31/20 20:36 98.0 F 86 18 144/88 99 03/31/20 20:30 16 03/31/20 18:27 98.1 F 87 18 141/85 99 Intake and Output 03/31/20 04/01/20 04/01/20 22:59 06:59 14:59 Other: # Voids 1 1 1 # Bowel Movements 1 1 Weight 86.636 kg Constitutional: Lying in bed in no apparent distress Head: normocephalic/atraumatic Eyes: No icterus, no injection Mouth: Moist mucous membranes Nose: No discharge noted Neck: Trachea midline, no JVD Cardiac: S1S2 appreciated. Lungs: Normal air entry in all lung kasper, no wheezing appreciated Abdomen: Soft, nontender, nondistended, normal bowel sounds. No guarding or rigidity Skin: No rashes, no jaundice Neuro: Awake alert and oriented 3, no focal deficits Results CBC & Chem 7: 04/01/20 05:31 04/01/20 05:31 Labs: Abnormal Lab Results - Last 24 Hours (Table) 03/31/20 03/31/20 03/31/20 Range/Units 19:10 19:10 19:10 WBC 10.7 H (3.8-10.6) k/uL Neutrophils # 8.2 H (1.3-7.7) k/uL Sodium 136 L (137-145) mmol/L Glucose 142 H (74-99) mg/dL Total Protein (6.3-8.2) g/dL Stool Occult Blood Positive H (Negative) 04/01/20 Range/Units 05:31 WBC (3.8-10.6) k/uL Neutrophils # (1.3-7.7) k/uL Sodium (137-145) mmol/L Glucose 111 H (74-99) mg/dL Total Protein 5.9 L (6.3-8.2) g/dL Stool Occult Blood (Negative) CT scan - abdomen: report reviewed (CT scan abdomen with colitis noted from the transverse colon to descending colon.) Assessment and Plan (1) Colitis Narrative/Plan: 59-year-old female with a history of tobacco abuse, hypertension and hyperlipidemia who presented with complaints of abdominal pain, blood per rectum and one episode of nonbloody emesis. No similar symptoms. Last colonoscopy approximately 3 years ago per the patient's recollection and normal. She does take daily naproxen therapy. She is also on PPI therapy for reflux disease. Hemoglobin was normal presentation at 12.6 with stool testing positive for occult blood. On CT imaging of the abdomen she was found to have colitis of the transverse colon, suspicion is for ischemic colitis in the setting of tobacco abuse, also consider infectious etiology with inflammatory process less likely given the acuity of symptoms. Current Visit: Yes Status: Acute Code(s): K52.9 - NONINFECTIVE GASTROENTERITIS AND COLITIS, UNSPECIFIED SNOMED Code(s): 57733668 (2) Abdominal pain Current Visit: Yes Status: Acute Code(s): R10.9 - UNSPECIFIED ABDOMINAL PAIN SNOMED Code(s): 56907409 (3) GI bleed Current Visit: Yes Status: Acute Code(s): K92.2 - GASTROINTESTINAL HEMORRHAGE, UNSPECIFIED SNOMED Code(s): 59931825 Plan: Supportive care Clear liquid diet for now Bentyl as needed for abdominal pain Flagyl and Levaquin added for treatment of colitis No plans for endoscopic evaluation at this time Would recommend patient repeat colonoscopy in 4 to 6 weeks for evaluation, however will consider sooner pending clinical course and laboratory evaluation Surgical service consulted Continue to monitor BMP, CMP, LFTs Thank you for allowing us to participate in the care of the patient
[2020-04-02] MEDS: metroNIDAZOLE-NS PMX 500 MG in SALINE 1 100ML.BAG IVPB SCH ×2 (08:01→16:22)
[2020-04-02] MEDS: amLODIPine 10 MG TAB PO SCH (08:05)
[2020-04-02] MEDS: ATORVASTATIN 20 MG TAB PO SCH (08:06)
[2020-04-02] MEDS: LISINOPRIL 20 MG TAB PO SCH (08:06)
[2020-04-02] MEDS: NICOTINE 14MG/24HR PATCH TRANSDERM SCH (08:06)
[2020-04-02] MEDS ORDERED: THIAMINE 100 MG TAB PO SCH (09:00)
[2020-04-02] MEDS: SODIUM CHLORIDE 0.9% 1,000 ML IV SCH (09:06)
[2020-04-02] MEDS: ALBUTEROL NEBULIZED 2.5 MG/3 ML INHALATION PRN ×2 (09:06→15:39)
[2020-04-02] MEDS: PANTOPRAZOLE 40 MG/10 ML VIAL IV SCH (09:06)
--- NOTE | 2020-04-02 13:36 | P.PN ---
Progress Note - Text Progress Note Date: 04/02/20 Patient feels slightly better today. She's had no significant bleeding. On exam vital signs are stable. Abdomen soft. There is some minimal left-sided tenderness. GI bleed related to colitis. Patiently discharged home today. She'll follow-up in the office in one week.
--- NOTE | 2020-04-02 13:47 | US ---
EXAMINATION TYPE: US venous doppler duplex LE BI DATE OF EXAM: 04/02/2020 10:36 AM COMPARISON: CT 04/01/2020 CLINICAL HISTORY: LLE swelling >R. SIDE PERFORMED: Bilateral TECHNIQUE: The lower extremity deep venous system is examined utilizing real time linear array sonog shannon with graded compression, doppler sonography and color-flow sonography. VESSELS IMAGED: External Iliac Vein (EIV) Common Femoral Vein Deep Femoral Vein Greater Saphenous Vein * Femoral Vein Popliteal Vein Small Saphenous Vein * Proximal Calf Veins (* superficial vessels) There is normal flow, compressibility, vascular waveforms Right Leg: Negative for DVT Left Leg: Negative for DVT Free fluid vs cyst in left groin measuring 11.0 x 4.8 x 6.1cm. Patient hasn't had any surgeries her e, no recent heart cath. IMPRESSION: No evident deep venous thrombosis at or above the knees. Iliopsoas fluid collection again noted.
[2020-04-02] MEDS: LEVOFLOXACIN 500MG-D5W PMX 500 MG in DEXTROSE/WATER 1 100ML.BAG IVPB SCH (14:54)
[2020-04-02 16:57] VITALS: BP 132/87; PULSE 85; RESP 15; TEMP 98.2
--- NOTE | 2020-04-03 09:25 | P.PN ---
Subjective Progress Note Date: 04/02/20 Principal diagnosis: Colitis, abdominal pain, blood per rectum Patient is seen lying in bed reporting that abdominal pain is improved. Tolerating diet. No nausea or vomiting. Objective - Vital Signs Vital signs: Vital Signs Temp 97.5 F L 04/02/20 12:00 Pulse 86 04/02/20 12:00 Resp 18 04/02/20 12:00 BP 125/66 04/02/20 12:00 Pulse Ox 95 04/02/20 00:00 Intake & Output 04/01/20 04/02/20 04/02/20 18:59 06:59 18:59 Intake Total 720 Balance 720 Intake: Oral 720 Other: # Voids 1 1 2 # Bowel Movements 1 - Exam On physical examination, patient appears comfortable in no apparent distress. HEAD: Normocephalic, atraumatic. EYES: No scleral icterus. No conjunctival injection. MOUTH: No lesions, tongue midline. NECK: Trachea midline, no gross abnormalities. ABDOMEN: Soft, less tender to palpation. Bowel sounds are positive. No organomegaly. No guarding or rigidity. EXTREMITIES: No pedal edema. SKIN: No rashes, no jaundice. NEUROLOGIC: Alert and oriented x3. No focal deficits. - Labs CBC & Chem 7: 04/02/20 06:02 04/01/20 05:31 Assessment and Plan (1) Colitis Narrative/Plan: 59-year-old female with a history of tobacco abuse, hypertension and hyperlipidemia who presented with complaints of abdominal pain, blood per rectum and one episode of nonbloody emesis. No similar symptoms. Last colonoscopy approximately 3 years ago per the patient's recollection and normal. She does take daily naproxen therapy. She is also on PPI therapy for reflux disease. Hemoglobin was normal presentation at 12.6 with stool testing positive for occult blood. On CT imaging of the abdomen she was found to have colitis of the transverse colon, suspicion is for ischemic colitis in the setting of tobacco abuse, also consider infectious etiology with inflammatory process less likely given the acuity of symptoms. Status: Acute Code(s): K52.9 - NONINFECTIVE GASTROENTERITIS AND COLITIS, UNSPECIFIED SNOMED Code(s): 81713927 (2) Abdominal pain Status: Acute Code(s): R10.9 - UNSPECIFIED ABDOMINAL PAIN SNOMED Code(s): 34398348 (3) GI bleed Status: Acute Code(s): K92.2 - GASTROINTESTINAL HEMORRHAGE, UNSPECIFIED SNOMED Code(s): 57948590 Plan: Supportive care Okay for low fiber, low residual diet, discussed with the patient at length Bentyl as needed for abdominal pain Flagyl and Levaquin added for treatment of colitis No plans for endoscopic evaluation at this time Would recommend patient repeat colonoscopy in 4 to 6 weeks for evaluation, however will consider sooner pending clinical course and laboratory evaluation Surgical service consulted Continue to monitor BMP, CMP, LFTs Thank you for allowing us to participate in the care of the patient
== END 2020-04-02 17:35 | disposition home or self-care (01) ==
LOC: EC 18:04 → 1SOBS 19:54
PROVIDERS: ADMIT Internal Medicine; ATTEND Internal Medicine
DX: K52.9 Noninfective gastroenteritis and colitis, unspecified (principal); D72.829 Elevated white blood cell count, unspecified; K92.2 Gastrointestinal hemorrhage, unspecified; I10 Essential (primary) hypertension; E78.5 Hyperlipidemia, unspecified; F17.200 Nicotine dependence, unspecified, uncomplicated; E66.01 Morbid (severe) obesity due to excess calories; Z68.30 Body mass index [BMI] 30.0-30.9, adult; M19.90 Unspecified osteoarthritis, unspecified site; Z90.710 Acquired absence of both cervix and uterus; Z96.60 Presence of unspecified orthopedic joint implant; Z79.899 Other long term (current) drug therapy
CPT/HCPCS: 96361 ×2; 96365; 96366 ×2; 96367; 96376 ×3; 96375; 99285; 36415; 94640 ×3; 86900; 86901; 86902; 80048 ×2; 80076; 85025 ×3; 85610; 85730; 86850; 86870; 86880; 82272; 93970; 74177; G0378 ×3; U0003; S4990 ×2; J2270 ×4; J1956 ×2; C9113 ×3; Q9967

== ENCOUNTER → 2020-07-08 | Outpatient (CLI) | payer OTHER ==
[2020-07-08 19:21] LABS: ALT 36 U/L (8-44); AST 27 U/L (13-35); African American GFR (CKD) 93.5 (60.0-200.0); Albumin/Globulin Ratio 2.04 (1.60-3.17); Alkaline Phosphatase 106 U/L (41-126); BUN/Creat Ratio 28.75 Ratio (12.00-20.00); C Reactive Protein <0.4 mg/dL (0.0-0.8); Calcium 10.2 mg/dL (8.7-10.3); Carbon Dioxide 29.2 mmol/L (21.6-31.8); Chloride 100 mmol/L (96-109); Globulin 2.4 g/dL (1.6-3.3); Glucose 103 mg/dL (70-110); Non-African American GFR(CKD) 80.7 (60.0-200.0); Potassium 4.4 mmol/L (3.5-5.5); Sodium 139 mmol/L (135-145); Total Bilirubin 0.5 mg/dL (0.2-1.2); Total Protein 7.3 g/dL (6.2-8.2)
[2020-07-08 19:58] LABS: Gliadin AB IgA, Deaminated NEGATIVE (NEGATIVE); Gliadin AB IgA, Unit <0.2 U/mL; Gliadin AB IgG, Deaminated NEGATIVE (NEGATIVE)
== END | disposition home or self-care (01) ==
LOC: LABWHC1 08:44
PROVIDERS: ATTEND Internal Medicine
DX: R19.4 Change in bowel habit (principal)
CPT/HCPCS: 36415; 80053; 83516; 83993; 85652; 86140; 87045; 87046; 87324; 87328; 87329

== ENCOUNTER 2020-07-28 07:47 | Day surgery (SDC) | payer OTHER ==
[2020-07-24 13:47] VITALS: BMI 29.0
[~2020-07-28 07:47] MED LIST changes: +LACTATED RINGERS 1,000 ML IV SCH; -REGADENOSON 0.4 MG/5 ML SYRINGE IV ONE
[2020-07-28 08:05] VITALS: TEMP 97.8
[2020-07-28] MEDS ORDERED: LACTATED RINGERS 1,000 ML IV ONE (08:07)
[2020-07-28] MEDS ORDERED: LIDOCAINE 1% (10MG/ML) FOR IV START INTRADERMA ONE (08:15)
[2020-07-28] MEDS ORDERED: LIDOCAINE 1% INJ 10MG/ML (20 ML MDV) ONE (09:02)
[2020-07-28] MEDS ORDERED: PROPOFOL 10 MG/ML 20 ML VIAL IV ONE (09:02)
--- NOTE | 2020-07-28 09:28 | P.PCN ---
Date of Procedure: 07/28/20 Description of Procedure: BRIEF HISTORY: Patient is a 60-year-old female presenting for colonoscopy for evaluation of change in bowel habits. The patient had been hospitalized with abdominal pain and blood per rectum and found to have a transverse and left colon colitis. Since discharge she has been having frequent loose bowel movements, predominantly after eating. She did have testing which was positive for Clostridium difficile infection and has received treatment. PROCEDURE PERFORMED: Colonoscopy with biopsy and polypectomy. PREOPERATIVE DIAGNOSIS: .Change in bowel habits, abnormal computed tomography scan of the abdomen, abdominal pain, left colonoscopy 3 years ago. ESTIMATED BLOOD LOSS: Minimal. IV sedation per Anesthesia. PROCEDURE: After informed consent was obtained, the patient, was brought into the endoscopy unit. IV sedation was administered by Anesthesia under continuous monitoring. Digital rectal examination was normal. Initially the Olympus CF-190 flexible video colonoscope was then inserted in the rectum, gradually advanced into the cecum without any difficulty. Careful examination was performed as the scope was gradually being withdrawn. Ileocecal valve and the appendiceal orifice were visualized and appeared normal. Prep was excellent. Mucosa of the cecum, ascending colon, transverse colon, descending colon, sigmoid colon, and rectum appeared normal. Random biopsies taken of the right and left colon in the setting of change in bowel habits. 2 diminutive polyps measuring 2 mm in size removed from the cecum and sigmoid colon with cold forcep polypectomy. Low- grade internal hemorrhoids seen. Retroflexion was performed in the rectum and no lesions were seen. The patient tolerated the procedure well. IMPRESSION: 2 diminutive polyps removed from the cecum and sigmoid with cold forcep. Random biopsies taken of the left colon due to change in bowel habits. Internal hemorrhoids. RECOMMENDATIONS: Findings of this examination were discussed with the patient . Okay to resume diet. Okay to resume medications. Await pathology from biopsies and polypectomy. Follow-up in GI clinic as scheduled. Repeat colonoscopy in 7 years for colon polyps, pending pathology.
[2020-07-28 09:42] VITALS: RESP 16
[2020-07-28 09:50] VITALS: BP 124/81; PULSE 59
== END 2020-07-28 10:04 | disposition home or self-care (01) ==
LOC: ORWHC2ENDO 07:47
PROVIDERS: ATTEND Internal Medicine
DX: K63.5 Polyp of colon (principal); K64.8 Other hemorrhoids; I10 Essential (primary) hypertension; E78.5 Hyperlipidemia, unspecified; F17.200 Nicotine dependence, unspecified, uncomplicated; Z79.899 Other long term (current) drug therapy; Z98.890 Other specified postprocedural states
CPT/HCPCS: 88305; 45380; J2001; J2704

== ENCOUNTER → 2020-08-27 | Outpatient (CLI) | payer OTHER | END | disposition home or self-care (01) | LOC: LABWHC1 12:24 | PROVIDERS: ATTEND Nurse Practitioner Family | DX: Z20.828 Contact with and (suspected) exposure to other viral communicable diseases (principal) | CPT/HCPCS: U0003; C9803 ==

== ENCOUNTER → 2021-07-15 | Outpatient (CLI) | payer OTHER | END | disposition home or self-care (01) | LOC: LABWHC1 11:38 | PROVIDERS: ATTEND Nurse Practitioner Family | DX: Z20.822 Contact with and (suspected) exposure to COVID-19 (principal); R50.9 Fever, unspecified; R05.9 Cough, unspecified | CPT/HCPCS: 87502; U0003; C9803; U0005 ==

== ENCOUNTER → 2021-08-03 | Outpatient (CLI) | payer OTHER ==
--- NOTE | 2021-08-05 10:23 | MM ---
Reason for exam: screening (asymptomatic). Last mammogram was performed 2 years and 9 months ago. History: Patient is postmenopausal. Benign excisional biopsy of the right breast, July 05, 2003. Took estrogen for 2 years beginning at age 43. Physical Findings: A clinical breast exam by your physician is recommended on an annual basis and results should be correlated with mammographic findings. MG Screening Mammo w CAD Bilateral CC and MLO view(s) were taken. Prior study comparison: October 20, 2018, bilateral MG screening mammo w CAD. November 10, 2016, bilateral MG screening mammo w CAD. The breast tissue is heterogeneously dense. This may lower the sensitivity of mammography. There is a tiny chronic nodularity in the left breast. There is no discrete abnormality. ASSESSMENT: Benign, BI-RAD 2 RECOMMENDATION: Routine screening mammogram of both breasts in 1 year.
== END | disposition home or self-care (01) ==
LOC: RADMAMWWP 15:41
PROVIDERS: ATTEND Family Medicine
DX: Z12.31 Encounter for screening mammogram for malignant neoplasm of breast (principal); Z78.0 Asymptomatic menopausal state
CPT/HCPCS: 77067

== ENCOUNTER → 2022-08-18 | Outpatient (CLI) | payer OTHER ==
--- NOTE | 2022-08-19 19:09 | MM ---
Reason for Exam: Screening (asymptomatic). Last screening mammogram was performed 12 month(s) ago. Patient History: Menarche at age 13. First Full-Term at age 26. Left ovary removed at age 43. Right ovary removed at age 43. Hysterectomy at age 43. Postmenopausal. Estrogen, starting at age 43 for 2 years. 07/05/2003, Benign Excisional Biopsy on the right side. Risk Values: Alvina 5 year model risk: 1.9%. NCI Lifetime model risk: 9.3%. Prior Study Comparison: 11/10/2016 Bilateral Screening Mammogram, [facility]. 10/20/2018 Bilateral Screening Mammogram, [facility]. 08/03/2021 Bilateral Screening Mammogram, [facility]. Tissue Density: There are scattered fibroglandular densities. Findings: Analyzed By CAD. There is no suspicious group of microcalcifications or new suspicious mass in either breast. Overall Assessment: Negative, BI-RAD 1 Management: Screening Mammogram of both breasts in 1 year. 1. Patient should continue monthly self breast exams. 2. A clinical breast exam by your physician is recommended on an annual basis. 3. This exam should not preclude additional follow-up of suspicious palpable abnormalities. Electronically signed and approved by: Daphne Jernigan M.D. Radiologist
== END | disposition home or self-care (01) ==
LOC: RADMAMWWP 15:15
PROVIDERS: ATTEND Family Medicine
DX: Z12.31 Encounter for screening mammogram for malignant neoplasm of breast (principal); Z78.0 Asymptomatic menopausal state; Z98.890 Other specified postprocedural states
CPT/HCPCS: 77063; 77067

== ENCOUNTER → 2023-01-24 | Outpatient (CLI) | payer OTHER ==
--- NOTE | 2023-01-24 16:02 | CTL ---
EXAMINATION TYPE: CT Low Dose Lung DATE OF EXAM ORDERED: 01/24/2023 HISTORY: Former smoker. Lung cancer screening CT DLP: 80.[address] CTDI: 2.40 mGy Automated exposure control for dose reduction was used. SCREENING VISIT: Initial COMPARISON: None TECHNIQUE: Low dose computed tomography scan was performed through the chest at 1 mm thick sections a nd reconstructed images in the coronal plane at [address] DIAGNOSTIC QUALITY: Satisfactory FINDINGS: LUNG NODULES: None. 1. There is a punctate density in the periphery of the right anterior lateral lung field. Series 3 im age 86. LUNGS: COPD: Severity: None Fibrosis: Severity: None Lymph nodes: None Other findings: None RIGHT PLEURAL SPACE: Effusion: None Calcification: None Thickening: None Pneumothorax: None LEFT PLEURAL SPACE: Effusion: None Calcification: Thickening: None Pneumothorax: None HEART: Heart Size: Normal Coronary calcification: None Pericardial effusion: None OTHER FINDINGS: Upper abdomen: Normal Bony thorax: Normal Supraclavicular region: Normal Other: Ascending thoracic aorta at the level the main pulmonary artery measures 3.7 cm. The main pul monary artery at the bifurcation measures 3.2 cm. IMPRESSION: 1. Punctate nodularity right lung. Follow-up exam in one year recommended. FOLLOW UP CT CHEST RECOMMENDATION: Follow-up low-dose CT chest one year. CT LUNG RAD: Lung-Rad 2 Benign Appearance or Behavior
== END | disposition home or self-care (01) ==
LOC: RADCTMAIN 14:42
PROVIDERS: ATTEND Family Medicine
DX: Z12.2 Encounter for screening for malignant neoplasm of respiratory organs (principal); F17.211 Nicotine dependence, cigarettes, in remission; R91.1 Solitary pulmonary nodule
CPT/HCPCS: 71271

== ENCOUNTER → 2024-01-26 | Outpatient (CLI) | payer BC ==
--- NOTE | 2024-01-27 10:12 | CTL ---
EXAMINATION TYPE: CT Low Dose Lung DATE OF EXAM ORDERED: 01/26/2024 HISTORY:. Lung cancer screening CT DLP: [address] CTDI: 2.53 mGy Automated exposure control for dose reduction was used. COMPARISON: 01/24/2023 TECHNIQUE: Low dose computed tomography scan was performed through the chest at 1 mm thick sections a nd reconstructed images in multiple planes at 1 mm and [address] DIAGNOSTIC QUALITY: Satisfactory FINDINGS:: There is a stable 5 mm right upper lobe pulmonary nodule. No new or suspicious lung mass or nodule is seen. The lungs are clear and there is no abnormal consolidation or interstitial density. There is no mediastinal, hilar or axillary adenopathy. There is no pleural effusion, pleural thickening or pneumothorax. No focal osseous lesions are seen. Limited scans the upper abdomen reveals no gross adenopathy. IMPRESSION: 1. BI-RADS Category 2 benign. Continue routine screening at yearly intervals. 2. No acute cardiopulmonary disease.
== END | disposition home or self-care (01) ==
LOC: RADCTMAIN 16:18
PROVIDERS: ATTEND Internal Medicine
DX: Z12.2 Encounter for screening for malignant neoplasm of respiratory organs (principal); Z87.891 Personal history of nicotine dependence
CPT/HCPCS: 71271

== ENCOUNTER → 2024-03-30 | Outpatient (CLI) | payer BC ==
--- NOTE | 2024-04-01 09:55 | US ---
EXAMINATION TYPE: US liver DATE OF EXAM: 03/30/2024 COMPARISON: NONE CLINICAL INDICATION: Female, 63 years old with history of R79.89 ELEVATED LFT'S; Elevated liver enzym es TECHNIQUE: Multiple sonographic images of the right upper quadrant are obtained. FINDINGS: EXAM MEASUREMENTS: Liver Length: 18.2 cm Gallbladder Wall: 0.3 cm CBD: 0.5 cm Right Kidney: 11.1 x 4.7 x 4.2 cm DAMASCENER NOTES: *Limitations due to overlying bowel gas Pancreas: Tail obscured by overlying bowel gas Liver: appears wnl as visualized Gallbladder: no evidence of stones Evidence for sonographic Tamayo's sign: no CBD: appears wnl Right Kidney: no evidence of hydronephrosis IMPRESSION: Unremarkable study
== END | disposition home or self-care (01) ==
LOC: RADUSWWP 07:07
PROVIDERS: ATTEND Internal Medicine
DX: R79.89 Other specified abnormal findings of blood chemistry (principal)
CPT/HCPCS: 76705

== ENCOUNTER → 2024-07-03 | Outpatient (CLI) | payer BC ==
--- NOTE | 2024-07-03 16:52 | XR ---
EXAMINATION TYPE: XR lumbar spine 2 or 3V DATE OF EXAM: 07/03/2024 4:47 PM CLINICAL INDICATION: Female, 64 years old with history of [id number] LUMBAR SPINE PAIN; [facility] COMPARISON: None TECHNIQUE: XR lumbar spine 2 or 3V - Frontal, lateral and coned in L5-S1 lateral views of the spine. FINDINGS: No evidence of any acute osseous pathology. No evidence of loss of vertebral body height i s seen. There is normal alignment of the lumbar vertebral bodies. Scattered disc space narrowing. Mul tilevel marginal osteophyte formation throughout the visualized spine. There is facet joint arthropat hy throughout the spine. Scattered at least mild neural foraminal stenosis. Arthroplasty changes at a ppear partially in the [id number] and appear intact. IMPRESSION: 1. No acute fracture. 2. Moderate multilevel disc degeneration. [facility], , 07/03/2024 4:50 PM
--- NOTE | 2024-07-04 08:31 | MM ---
Reason for Exam: Screening (asymptomatic). Last mammogram was performed 1 year(s) and 11 month(s) ago. Patient History: Menarche at age 13. First Full-Term at age 26. Left ovary removed at age 43. Right ovary removed at age 43. Hysterectomy at age 43. Postmenopausal. Estrogen, starting at age 43 for 2 years. 07/05/2003, Benign Excisional Biopsy on the right side. Risk Values: Alvina 5 year model risk: 2.1%. NCI Lifetime model risk: 8.7%. Prior Study Comparison: 10/20/2018 Bilateral Screening Mammogram, [facility]. 08/03/2021 Bilateral Screening Mammogram, [facility]. 08/18/2022 Bilateral MG 3D screening mammo w/cad, [facility]. Tissue Density: The breasts are heterogeneously dense, which may obscure small masses. Findings: Analyzed By CAD. Asymmetric density in the outer central left breast for which spot compression view recommended. Benign-appearing calcifications. Overall Assessment: Incomplete: need additional imaging evaluation, BI-RAD 0 Management: Diagnostic Mammogram of the left breast. . Patient should continue monthly self-breast exams. A clinical breast exam by your physician is recommended on an annual basis. This exam should not preclude additional follow-up of suspicious palpable abnormalities. Note on Alvina scores and lifetime risk: 1. A Alvina score greater than 3% is considered moderate risk. If this is the case, consider specialist referral to assess eligibility for a risk reducing agent. 2. If overall lifetime risk for the development of breast cancer is 20% or higher, the patient may qualify for future screening with alternating mammogram and breast MRI. [facility], , 07/04/2024 8:27 AM. Electronically signed and approved by: Helder Colunga M.D. Radiologis
== END ==
LOC: RADMAMWWP 16:11
PROVIDERS: ATTEND Internal Medicine
CPT/HCPCS: 72100; 77063; 77067

== ENCOUNTER → 2024-07-11 | Outpatient (CLI) | payer BC ==
--- NOTE | 2024-07-11 07:40 | MM ---
Reason for Exam: Additional evaluation requested from abnormal screening. Last screening mammogram was performed less than 1 month ago. Patient History: Menarche at age 13. First Full-Term at age 26. Left ovary removed at age 43. Right ovary removed at age 43. Hysterectomy at age 43. Postmenopausal. Estrogen, starting at age 43 for 2 years. 07/05/2003, Benign Excisional Biopsy on the right side. Risk Values: Alvina 5 year model risk: 2.1%. NCI Lifetime model risk: 8.7%. Prior Study Comparison: 08/03/2021 Bilateral Screening Mammogram, [facility]. 08/18/2022 Bilateral MG 3D screening mammo w/cad, [facility]. 07/03/2024 Bilateral MG 3D screening mammo w/cad, [facility]. Tissue Density: Left: There are scattered areas of fibroglandular density. Findings: Analyzed By CAD. No evidence for persistent mass or asymmetric density. Overall Assessment: Negative, BI-RAD 1 Management: Screening Mammogram of both breasts in 1 year. . Results were given to the patient verbally at the time of exam. Patient should continue monthly self-breast exams. A clinical breast exam by your physician is recommended on an annual basis. This exam should not preclude additional follow-up of suspicious palpable abnormalities. Note on Alvina scores and lifetime risk: 1. A Alvina score greater than 3% is considered moderate risk. If this is the case, consider specialist referral to assess eligibility for a risk reducing agent. 2. If overall lifetime risk for the development of breast cancer is 20% or higher, the patient may qualify for future screening with alternating mammogram and breast MRI. [facility], , 07/11/2024 7:37 AM. Electronically signed and approved by: Tevin Chan M.D. Radiologis
== END | disposition home or self-care (01) ==
LOC: RADMAMWWP 07:03
PROVIDERS: ATTEND Internal Medicine
CPT/HCPCS: 77061; 77065

== ENCOUNTER → 2024-07-26 | Outpatient (CLI) | payer BC ==
--- NOTE | 2024-07-26 17:30 | US ---
EXAMINATION TYPE: US carotid duplex BILAT DATE OF EXAM: 07/26/2024 COMPARISON: NONE CLINICAL INDICATION: Female, 64 years old with history of M85.851 R HIP OSTEO I65.23 STENOSIS; Additional History: .... TECHNIQUE: Grayscale, color Doppler and spectral Doppler evaluation of the bilateral carotid systems and vertebral arteries. Indirect Doppler criteria was utilized. FINDINGS: EXAM MEASUREMENTS: RIGHT: Peak Systolic Velocity (PSV) cm/sec ----- Right CCA: 106 ----- Right ICA: 117 ----- Right ECA: 167 ICA/CCA ratio: 1.1 RIGHT: End Diastole cm/sec ----- Right CCA: 24.0 ----- Right ICA: 30.5 ----- Right ECA: 19.2 LEFT: Peak Systolic Velocity (PSV) cm/sec ----- Left CCA: 82.5 ----- Left ICA: 64.3 ----- Left ECA: 120 ICA/CCA ratio: 0.8 LEFT: End Diastole cm/sec ----- Left CCA: 27.9 ----- Left ICA: 22.7 ----- Left ECA: 24.7 VERTEBRALS (direction of flow): Right Vertebral: Antegrade Left Vertebral: Antegrade Rhythm: Normal Color Doppler imaging shows patency with blood flow throughout the carotid artery. Spectral waveforms are within normal limits. IMPRESSION: 1. No significant flow limiting stenosis based on velocities. Criteria for Assigning % of Stenosis / Diameter reduction (Estimation based on the indirect measurements of the internal carotid artery velocities (ICA PSV). 1. Normal (no stenosis)=ICA PSV < 125 cm/s: ratio < 2.0: ICA EDV<40 cm/s. 2. Less than 50% stenosis=ICA PSV < 125 cm/s: ratio < 2.0: ICA EDV<40 cm/s. 3. 50 to 69% stenosis=ICA PSV of 125 to 230 cm/s: ration 2.0 ? 4.0: ICA EDV 40-100 cm/s. 4. Greater than 70% stenosis to near occlusion= ICA PSV > 230 cm/s: ratio > 4.0: ICA EDV > 100 cm/s. 5. Near occlusion= ICA PSV velocities may be low or undetectable: variable ratio and ICA EDV. 6. Total occlusion=unable to detect flow. [facility], , 07/26/2024 5:28 PM
== END | disposition home or self-care (01) ==
LOC: RADUSWWP 16:05
PROVIDERS: ATTEND Internal Medicine
DX: M85.851 Other specified disorders of bone density and structure, right thigh (principal)
CPT/HCPCS: 93880